=== PATIENT | male | born 1985 | race Caucasian/White ===

== ENCOUNTER 2016-10-01 19:13 | Emergency (ER) | payer OTHER ==
[~2016-10-01] VITALS: Ht 162.6 cm; Wt 67.2 kg
[~2016-10-01 19:13] MED LIST: PRLSR20 PO
[2016-10-01 19:16] VITALS: TEMP 36.8; Ht 162.6 cm; Wt 67.2 kg
--- NOTE | 2016-10-01 19:45 | EMERGENCY ROOM VISIT NOTE ---
History Report prepared by Chalo: Faiza Carrillo Under the Supervision of: Dr. Benji Lo M.D. First contact with patient: 19:33 Chief Complaint: SHOULDER PAIN Stated Complaint: RT SHOULDER PAIN History of Present Illness The patient is a 31 year old male who presents to the Emergency Room with complaints of constant right shoulder pain beginning 30 minutes ago. The patient states that he was leaning on the couch and his daughter jumped on him and his shoulder was pushed up. He notes that he is right handed. The patient complains of shoulder popping and discomfort. He denies any numbness, weakness, chest pain, abdominal pain, shortness of breath, and chest pain. Source of History: patient Onset: 30 minutes ago Position: shoulder (right) Timing: constant Associated Symptoms: No SOB, No abdominal pain, No chest pain, No numbness, No weakness Note: The patient complains of shoulder popping and discomfort. Review of Systems See HPI for pertinent positives & negatives. A total of 10 systems reviewed and were otherwise negative. Past Medical & Surgical Medical Problems: (1) Lumbago (2) Tobacco Use Disorder Surgical Problems: (1) No significant past surgical history Old medical records were reviewed. Nurse's notes were reviewed and I agree with. Family History No pertinent family history Social History Smoking Status: Former Smoker Alcohol Use: none Marital Status: single Housing Status: lives with family Occupation Status: employed Current/Historical Medications No Active Prescriptions or Reported Meds Allergies Coded Allergies: Amoxicillin (Verified Allergy, Unknown, hives, 01/31/16) Penicillins (Verified Allergy, Unknown, hives?, 01/31/16) Physical Exam Vital Signs Date Time Temp Pulse Resp B/P Pulse Ox O2 Delivery O2 Flow Rate FiO2 10/01/16 20:38 82 20 131/78 96 10/01/16 19:16 36.8 74 16 144/92 96 Room Air Physical Exam General: Well developed well nourished non ill appearing young male, in no acute distress, breathing comfortably on room air. Normal speech HEENT: Normal cephalic atraumatic. Pupils are equal round and reactive to light. Extraocular movements are intact. Oropharynx is pink with moist mucous membranes. No swelling of the mouth lips or tongue. Neck: Supple with a midline trachea. No meningeal signs or stiffness, no JVD or bruits. No Stridor. Chest: Clear to auscultation bilaterally. No wheezes or rhonchi. No increased work of breathing. Heart: regular rate and rhythm. Abdomen: Soft nontender, nondistended without rebound guarding or rigidity. Extremities: No cyanosis clubbing or edema. No calf tenderness or assymetry. Right shoulder is not red, warm, or swollen no tenderness on palpation, no tenderness over clavicle when he rotates it. It does grind and pop, normal motor and sensation in RUE. Spine/Back. Non tender to palpation. No CVA tenderness Skin: Good turgor without rashes. Neurologic exam: Cranial nerves two through 12 are intact. Motor and sensation are intact and symmetrical throughout. Medical Decision & Procedures ER Provider Diagnostic Interpretation: X-ray results as stated below per interpretation by me and the radiologist: RIGHT SHOULDER MIN 2 VIEWS ROUTINE DISCUSSION: The bones and joint spaces appear intact. There is no evidence of fracture, dislocation or bony disease. There is no evidence for soft tissue swelling. IMPRESSION: Negative study. Electronically signed by: Regan Syed M.D. 10/01/2016 8:07 PM Dictated Date/Time: 10/01/2016 8:06 PM ED Course 193: Past medical records reviewed. The patient was evaluated in room D9, and a complete history and physical examination were performed. 2026: Upon reevaluation, the patient is doing well. I discussed the results and treatment plan with the patient. He verbalized agreement of the treatment plan. The patient was discharged home. Medical Decision Differential diagnosis includes dislocation, fracture, musculoskeletal ligamentous injury. This patient comes in as described above. He had a injury to his right shoulder when playing with his kids. He has no neurologic deficit or obvious injury. The shoulder does grinding click when he moves. He may have had more of a soft tissue injury. X-rays were obtained. There is no fracture dislocation. This may more: Cartilaginous as well. He does not seem to have any pain I offered him a sling he declined. I recommend he follow with orthopedic. He said he would rather follow-up with his regular doctor when he can get referred from there as well. He should return if : increasing pain, numbness or weakness, fever chills, any new problemsor concerns. He is happy with plan and discharged to home. Impression Primary Impression: Right shoulder pain Scribe Attestation The scribe's documentation has been prepared under my direction and personally reviewed by me in its entirety. I confirm that the note above accurately reflects all work, treatment, procedures, and medical decision making performed by me. Departure Information Dispostion Home / Self-Care Prescriptions No Active Prescriptions or Reported Meds Referrals No Doctor, Assigned (PCP) Forms HOME CARE DOCUMENTATION FORM, IMPORTANT VISIT INFORMATION Patient Instructions My [facility] Additional Instructions Rest Use Iburpfeon 400 mg every 6 hours if needed REturn if: worsening of symptoms, numbness or weakness, any new problems or concerns Follow-up with your doctor or orthopedist this week for recheck
--- NOTE | 2016-10-01 20:08 | DIAGNOSTIC IMAGING REPORT ---
RIGHT SHOULDER MIN 2 VIEWS ROUTINE CLINICAL HISTORY: eval for trauma Right pain COMPARISON: None. DISCUSSION: The bones and joint spaces appear intact. There is no evidence of fracture, dislocation or bony disease. There is no evidence for soft tissue swelling. IMPRESSION: Negative study. Electronically signed by: Regan Syed M.D. 10/01/2016 8:07 PM Dictated Date/Time: 10/01/2016 8:06 PM
[2016-10-01 20:38] VITALS: BP 131/78; PULSE 82; O2SAT 96
== END 2016-10-01 20:39 | disposition home or self-care (01) ==
LOC: C.EDB 19:14 → C.EDD 20:39
DX: M25.511 Pain in right shoulder (principal); W50.0XXA Accidental hit or strike by another person, initial encounter; Z87.891 Personal history of nicotine dependence

== ENCOUNTER 2017-04-15 20:16 | Emergency (ER) | payer SELFPAY ==
[~2017-04-15] VITALS: Ht 162.6 cm; Wt 67.0 kg
[2017-04-15 20:20] VITALS: BP 126/86; PULSE 69; TEMP 36.6; O2SAT 97; Ht 162.6 cm; Wt 67.0 kg
[2017-04-15] MEDS ORDERED: DOXYCYCLINE HYCLATE 100 MG CAP PO STA (20:30)
[2017-04-15] MEDS ORDERED: DOXY-300 PO (20:33)
--- NOTE | 2017-04-15 20:34 | EMERGENCY ROOM VISIT NOTE ---
History First contact with patient: 20:22 Chief Complaint: BITE Stated Complaint: TICK BITE/ RASH History of Present Illness The patient is a 31 year old male who presents to the Emergency Room via private vehicle with complaints of "tick bite/rash". The patient states that he noticed a tick on his left medial proximal thigh 2 nights ago. He states that he is unsure how long it was there. There was some pain associated with it and a small rash. It was removed. He states that he now noticed a rash in the area. His tetanus is up-to-date. He denies today any chest pain, shortness of breath, fevers or chills. Review of Systems A complete 6-point Review of Systems was discussed with the patient, with pertinent positives and negatives listed in the History of Present Illness. All remaining Review of Systems questions can be considered negative unless otherwise specified. Past Medical/Surgical History Medical Problems: (1) Lumbago (2) Tobacco Use Disorder Surgical Problems: (1) No significant past surgical history Family History No pertinent family history Social History Smoking Status: Current Every Day Smoker Alcohol Use: none Marital Status: single Housing Status: lives with family Occupation Status: employed Current/Historical Medications Scheduled Doxycycline (Monohydrate) (Doxycycline), 100 MG PO BID Physical Exam Vital Signs Date Time Temp Pulse Resp B/P (MAP) Pulse Ox O2 Delivery O2 Flow Rate FiO2 18/17 20:20 36.6 69 18 126/86 97 Room Air Physical Exam VITAL SIGNS - Vital signs and nursing notes were reviewed. Stable. Afebrile. GENERAL -31-year-old male appearing his stated age who is in no acute distress. Communicates well with provider and answers questions appropriately. SKIN - there is a small erythematous 1 cm in diameter indurated region on the patient's left anterior thigh surrounded by a larger oval shaped erythematous region concerning for that of erythema migrans. HEAD - NC/AT. NECK - No nuchal rigidity. LUNGS - Chest wall symmetric without accessory muscle use, intercostals retractions, or central cyanosis. Normal vesicular breath sounds CTA B/L. No wheezes, rales, or rhonchi appreciated. CARDIAC - RRR with S1/S2. No murmur, rubs, or gallops appreciated. Medical Decision & Procedures Medications Administered Medications (Trade) Dose Ordered Sig/Anastasiia Route Start Time Stop Time Status Last Admin Dose Admin Doxycycline Hyclate (Vibramycin Cap) 200 mg ONE STAT PO 04/15/17 20:30 04/15/17 20:31 DC 04/15/17 20:45 200 MG Medical Decision Patient was seen and evaluated as above. He presents to us today status post tick bite with what appears to be the erythema migrans rash. It is slightly atypical given that it is not centrally located over the initial tick bite however it certainly is included with this. I will treat this with 21 days of doxycycline. First dose was given here with the other dose to take in 12 hours. The remainder of the supply was sent to his pharmacy. He was educated upon importance of follow-up with his family doctor in the next few weeks. He was educated on management as well as worrisome symptoms in which to return. He had questions answered prior to discharge, and was discharged home in good condition. In evaluation treatment of this patient the following differential diagnoses were entertained: Erythema migrans, cellulitis, among others. Impression Primary Impression: Tick bite Additional Impression: Erythema migrans (Lyme disease) Departure Information Dispostion Home / Self-Care Condition GOOD Prescriptions Doxycycline (Monohydrate) (Doxycycline) 100 Mg Cap 100 MG PO BID for 20 Days, #40 TABS Prov: Fox Oswald, JOSHUA 04/15/17 Referrals Regan Gonzáles M.D. (PCP) Forms HOME CARE DOCUMENTATION FORM, IMPORTANT VISIT INFORMATION Patient Instructions Disease Lyme Prevent, ED Lyme Disease, [facility] Additional Instructions You were seen in the emergency Department for a tick bite. As we discussed, I am concerned that he may be experiencing the erythema migrans rash associated with early Lyme disease. You have been prescribed Doxycycline to be taken as prescribed. This is an antibiotic. All antibiotics have the potential to cause diarrhea. Stop this medication and contact a medical provider if you were to develop any significant adverse side effects including: wheezing, shortness of breath, passing out, vomiting, or a diffuse rash. Always take antibiotics as directed and COMPLETE the ENTIRE course regardless of the improvement of your symptoms. Protect yourself with sunscreen while on this antibiotic as it increases your skin's sensitivity to the light and cause bad sunburns. In addition, you should be sure to take this pill after eating. Make sure the pill is completely swallowed as this medication can cause irritation to the lining of the esophagus. Do NOT drink milk or eat anything with large amounts of Calcium in them 1 hour prior to taking this medication as this will decrease the effectiveness of the medication. Please follow-up with your family doctor for recheck in the next few weeks. Please return with any new/concerning symptoms. Problem Qualifiers
== END 2017-04-15 20:47 | disposition home or self-care (01) ==
LOC: C.EDB 20:17 → C.EDD 20:47
DX: S70.362A Insect bite (nonvenomous), left thigh, initial encounter (principal); A69.20 Lyme disease, unspecified; W57.XXXA Bitten or stung by nonvenomous insect and other nonvenomous arthropods, initial encounter; F17.200 Nicotine dependence, unspecified, uncomplicated